=== PATIENT | female | born 1960 | race Caucasian/White ===

== ENCOUNTER → 2020-11-05 | Outpatient (CLI) | payer OTHER ==
[~2020-11-05] MED LIST: ASPIRIN EC325 MG PO; ATORVASTATIN CA20 MG PO; DULOXETINE HCL30 MG PO; GLUCOPHAGE 500500 MG PO; HYDROXYZINE PAM25 MG PO; INCRUSE ELLI62.5 MCG INH; IPRAT-ALBUT 0.5-3 ML INH; LAMOTRIGINE25 MG PO; LANTUS INS100 UTS/M1 SQ; LITHIUM CARBON300 M3 PO; MONTELUKAST SOD10 MG PO; NORVASC 5 MG TAB5 MG PO; PERCOCET 5/325 T1 EA PO; PROTONIX 40 MG40 M1 PO; QUETIAPINE FUM200 MG PO; SENNA-DOCUSATE1 EACH PO; SYMBICORT 16010.2 GM INH; VENTOLIN HFA 66.7 GM INH
== END ==
LOC: RAD 13:02
DX: J44.9 Chronic obstructive pulmonary disease, unspecified (principal)
CPT/HCPCS: 71046

== ENCOUNTER 2021-01-27 14:33 | Inpatient (IN) | payer OTHER ==
[~2021-01-27] VITALS: Ht 157.5 cm; Wt 94.8 kg
[2021-01-27 16:04] LABS: HEMOGLOBIN 13.4 gm/dl (12.3-15.3); RED BLOOD COUNT 4.42 M/UL (4.00-5.10); WHITE BLOOD COUNT 9.9 K/UL (4.5-11.0)
[2021-01-27 16:24] LABS: BUN/CREATININE RATIO 6 (0-10)
[2021-01-28] MEDS ORDERED: CLARITIN10 MG PO (02:40)
[2021-01-28] MEDS ORDERED: B-121000 MCG PO (02:40)
[2021-01-28] MEDS ORDERED: METFORMIN HCL1000 MG PO (02:41)
[2021-01-28] MEDS ORDERED: BENADRYL25 MG PO (02:41)
[2021-01-28] MEDS ORDERED: COENZYME Q10200 MG PO (02:42)
[2021-01-28] MEDS ORDERED: LINZESS72 MCG PO (02:42)
[2021-01-28] MEDS ORDERED: ACETAMINOPHEN500 M1 PO (02:42)
[2021-01-28] MEDS ORDERED: VISTARIL 25 MG25 MG PO (02:43)
[2021-01-28 08:32] LABS: HEMOGLOBIN 14.3 gm/dl (12.3-15.3); RED BLOOD COUNT 4.68 M/UL (4.00-5.10); WHITE BLOOD COUNT 12.1 K/UL (4.5-11.0)
[2021-01-28 08:58] LABS: BUN/CREATININE RATIO 9 (0-10)
[2021-01-29 08:18] LABS: BUN/CREATININE RATIO 17 (0-10)
[2021-01-30 06:55] LABS: HEMOGLOBIN 12.7 gm/dl (12.3-15.3); RED BLOOD COUNT 4.33 M/UL (4.00-5.10)
[2021-01-30 07:09] LABS: BUN/CREATININE RATIO 21 (0-10)
[2021-01-30] MEDS ORDERED: MEDROL4 MG PO (10:59)
[2021-01-30] MEDS ORDERED: IPRAT-ALBUT 0.5-3 ML INH (11:07)
[2021-01-30] MEDS ORDERED: STIOLTO RESPIMAT4 GM INH (11:13)
== END 2021-01-30 11:00 | disposition home or self-care (01) | DRG 189 ==
LOC: ER1 14:33 → CDU 18:02 → MED SURG 4 21:19
PROVIDERS: Physician Assistant; Physician Assistant Medical; ADMIT Internal Medicine
DX: J96.21 Acute and chronic respiratory failure with hypoxia (principal); J44.1 Chronic obstructive pulmonary disease with (acute) exacerbation; Z20.822 Contact with and (suspected) exposure to COVID-19; F31.9 Bipolar disorder, unspecified; M51.36 Other intervertebral disc degeneration, lumbar region; M50.30 Other cervical disc degeneration, unspecified cervical region; M79.7 Fibromyalgia; E66.01 Morbid (severe) obesity due to excess calories; K21.9 Gastro-esophageal reflux disease without esophagitis; F17.210 Nicotine dependence, cigarettes, uncomplicated; E11.65 Type 2 diabetes mellitus with hyperglycemia; Z86.73 Personal history of transient ischemic attack (TIA), and cerebral infarction without residual deficits; Z88.8 Allergy status to other drugs, medicaments and biological substances; Z88.6 Allergy status to analgesic agent; Z82.3 Family history of stroke; Z80.42 Family history of malignant neoplasm of prostate; Z80.8 Family history of malignant neoplasm of other organs or systems; Z79.82 Long term (current) use of aspirin; Z79.899 Other long term (current) drug therapy
CPT/HCPCS: 36415; 36600; 71045; 80048; 80053; 82550; 82553; 82803; 82962; 83605; 83735; 83874; 83880; 84484; 85025; 87040; 93005; 94640; 94664; 94760; 96374; 99285; J0696; J1650; J2920; J2930; Q0177; U0002

== ENCOUNTER → 2021-06-16 | Outpatient (CLI) | payer OTHER ==
[~2021-06-16] MED LIST changes: +ACETAMINOPHEN500 M1 PO; +B-121000 MCG PO; +BENADRYL25 MG PO; +CLARITIN10 MG PO; +COENZYME Q10200 MG PO; +LINZESS72 MCG PO; +MEDROL4 MG PO; +METFORMIN HCL1000 MG PO; +STIOLTO RESPIMAT4 GM INH; +VISTARIL 25 MG25 MG PO
== END ==
LOC: HEART 5 15:10
DX: J40 Bronchitis, not specified as acute or chronic (principal)
CPT/HCPCS: 94060; 94729

== ENCOUNTER → 2021-07-07 | Outpatient (CLI) | payer OTHER | LOC: KOH-I 06-22 13:00 | DX: N28.9 Disorder of kidney and ureter, unspecified (principal) | CPT/HCPCS: 76775 ==

== ENCOUNTER → 2021-09-12 | Outpatient (CLI) | payer OTHER | LOC: HEART 5 08-11 15:30 | DX: R00.1 Bradycardia, unspecified (principal) ==